=== PATIENT | male | born 1965 | race African-American/Black ===

== ENCOUNTER 2023-02-02 16:38 | Inpatient (IN) | payer OTHER ==
[2023-02-02 17:18] VITALS: BMI 32.5
[2023-02-02] MEDS ORDERED: BENZOCAINE/MENTHOL (CHLORASEPTIC ) LOZENGE MM PRN (19:42)
[2023-02-02] MEDS ORDERED: BISMUTH SUBSALICYLATE 524 MG/30 ML PO PRN (19:42)
[2023-02-02] MEDS ORDERED: guaiFENesin 600 MG TABLET.ER (FP) PO PRN (19:42)
[2023-02-02] MEDS ORDERED: ONDANSETRON *ODT* 4 MG TABLET SL PRN (19:42)
[2023-02-02] MEDS ORDERED: MAGNESIUM HYDROX 2400MG/30ML ORAL SUSPENSION 30 ML CUP PO PRN (19:42)
[2023-02-02] MEDS ORDERED: IBUPROFEN 400 MG TABLET (FP) PO PRN (19:42)
[2023-02-02] MEDS ORDERED: P-EPHED 60MG/TRIPROLIDI 2.5MG TABLET PO PRN (19:42)
[2023-02-02] MEDS ORDERED: LOPERAMIDE HCL 2 MG CAPSULE PO PRN (19:42)
[2023-02-02] MEDS ORDERED: METHOCARBAMOL 500 MG TABLET PO PRN (19:42)
[2023-02-02] MEDS ORDERED: MAG HYDROX/AL HYDROX/SIMETH 30 ML UNIT-DOSE CUP PO PRN (19:42)
[2023-02-02] MEDS ORDERED: ACETAMINOPHEN 325 MG TABLET (FP) PO PRN (19:42)
[2023-02-02] MEDS ORDERED: MELATONIN 5 MG TABLETS PO PRN (19:42)
[2023-02-02] MEDS ORDERED: BENZONATATE 200 MG CAPSULE PO PRN (19:42)
[2023-02-02] MEDS ORDERED: DICYCLOMINE HCL 10 MG CAPSULE PO PRN (19:42)
[2023-02-02] MEDS ORDERED: POLYETHYLENE GLYCOL (HEALTHYLAX) 3350 17 GM PACKET PO PRN (19:42)
[2023-02-02] MEDS ORDERED: diazePAM 5 MG TABLET PO PRN (19:44)
[2023-02-02] MEDS: IBUPROFEN 600 MG TABLET (FP) PO PRN (20:45)
[2023-02-02] MEDS: amLODIPine BESYLATE 10 MG TABLET (FP) PO SCH (22:15)
[2023-02-02] MEDS: THIAMINE HCL 100 MG TABLET (FP) PO SCH (22:15)
[2023-02-03] MEDS: amLODIPine BESYLATE 10 MG TABLET (FP) PO SCH (10:39)
[2023-02-03] MEDS: PRENATAL VITAMINS W/ FOLIC ACID TABLET (FP) PO SCH (10:39)
[2023-02-03 12:54] LABS: POTASSIUM 4.3 mmol/L (3.5-5.1)
[2023-02-03 12:59] LABS: CALCIUM 8.7 mg/dL (8.5-10.1)
[2023-02-03] MEDS: CITALOPRAM HYDROBROMIDE 20 MG TABLET PO SCH (12:59)
[2023-02-03 13:02] LABS: CREATININE 0.8 mg/dL (0.55-1.3)
[2023-02-03 13:04] LABS: TOT PROT 6.4 g/dl (6.4-8.2)
[2023-02-03 13:07] LABS: BILIRUBIN,TOTAL 0.4 mg/dL (0.2-1)
[2023-02-03 13:12] LABS: HEMATOCRIT 38.2 % (35.4-49); HEMOGLOBIN 12.6 GM/dL (11.7-16.9); MCH 26.7 pg (25.7-33.7); MEAN CELL VOLUME 80.8 fl (80-96); PLATELET COUNT 253 10^3/uL (134-434); RBC 4.73 M/mm3 (4.00-5.60); RDW 18.2 % (11.9-15.9); WHITE BLOOD COUNT 7.7 K/mm3 (4.0-10.0)
[2023-02-03] MEDS: IBUPROFEN 600 MG TABLET (FP) PO PRN (17:59)
[2023-02-03] MEDS: THIAMINE HCL 100 MG TABLET (FP) PO SCH (23:24)
[2023-02-04] MEDS: IBUPROFEN 600 MG TABLET (FP) PO PRN (07:03)
[2023-02-04] MEDS: PRENATAL VITAMINS W/ FOLIC ACID TABLET (FP) PO SCH (09:33)
[2023-02-04] MEDS: CITALOPRAM HYDROBROMIDE 20 MG TABLET PO SCH (09:34)
[2023-02-04] MEDS: amLODIPine BESYLATE 10 MG TABLET (FP) PO SCH (09:34)
[2023-02-04 09:35] VITALS: BP 166/63; PULSE 76; RESP 18; TEMP 97.3
== END 2023-02-04 09:53 | disposition home or self-care (01) | DRG 897 ==
LOC: YASAS 16:38 → Y6N 20:13
PROVIDERS: ADMIT Allergy & Immunology; ATTEND Surgery
PROC: HZ2ZZZZ Detoxification Services for Substance Abuse Treatment (ICD-10-PCS; principal; 2023-02-02)
DX: F10.20 Alcohol dependence, uncomplicated (principal); F33.1 Major depressive disorder, recurrent, moderate; F17.210 Nicotine dependence, cigarettes, uncomplicated; F10.282 Alcohol dependence with alcohol-induced sleep disorder; F10.24 Alcohol dependence with alcohol-induced mood disorder; I10 Essential (primary) hypertension; Z62.810 Personal history of physical and sexual abuse in childhood; Z87.19 Personal history of other diseases of the digestive system; Z56.0 Unemployment, unspecified; Z59.01 Sheltered homelessness; Z88.8 Allergy status to other drugs, medicaments and biological substances
CPT/HCPCS: 36415; 80053; 85027; 86780; C9803-CS; U0003; U0005